=== PATIENT | male | born 1940 | race Caucasian/White ===

== ENCOUNTER 2018-12-28 10:38 | Observation (INO) | payer MEDICARE ==
[~2018-12-28] VITALS: Ht 170.2 cm; Wt 71.4 kg
[~2018-12-28 10:38] MED LIST: ALLO100T30 PO; ALPR0.254 PO; ASPI325T17 PO; ATEN25TA PO; ATOR-2 PO; ATOR10TA9 PO; BENA20TA54 PO; BENA20TA61 PO; CEFD300C37 PO; CLOP75TA52 PO; DOXY100T PO; FLUT1DIS IH; GLIP5TAB10 PO; GUAI600T31 PO; HYDR1TAB16 PO; IPRA3AMP30 NPPB; ISOS30TA21 PO; ISOSORBIDE PO; MAGN400T26 PO; METF500T17 PO; METO-93 PO; METOPROLOL; NITR0.4T41 SL; OMEP-110 PO; PRED10TA14 PO; RIVA20TA PO; TICA90TA PO; TIOT18CA INH; TRAM50TA2 PO; VIT D PO
--- NOTE | 2018-12-28 10:49 | NUR ---
EKG performed in triage
[2018-12-28] MEDS ORDERED: NITROGLYCERIN SINGLE TAB 0.4 MG SL PRN (11:00)
[2018-12-28] MEDS ORDERED: ASPIRIN 81 MG TABLET CHEW PO ONE (11:00)
[2018-12-28] MEDS ORDERED: SODIUM CHLORIDE FLUSH 10ML SYR IVF ONE (11:00)
--- NOTE | 2018-12-28 11:14 | NUR ---
Assumed care of patient. C/O substernal CP radiating across chest. Hx DE, afib, DM, HTN, high choelsterol, and 6 vessel CABG. Placed on NIBP, pulse ox and playground monitor. at bedside. Will continue to monitor.
[2018-12-28] MEDS ORDERED: ASPIRIN 81 MG TABLET CHEW ONE (11:16)
[2018-12-28] MEDS ORDERED: NITROGLYCERIN SINGLE TAB 0.4 MG SL ONE (11:16)
--- NOTE | 2018-12-28 11:23 | NUR ---
CP remains 3/10 after first nitro.
--- NOTE | 2018-12-28 11:25 | NUR ---
BP went from 147/61 to 107/68. Nitro held.
[2018-12-28 11:26] LABS: BASOPHILS # (AUTO) 0.03 x10^3/uL (0-0.1); BASOPHILS % (AUTO) 0 % (0-1); EOSINOPHILS # (AUTO) 0.05 x10^3/uL (0-0.4); EOSINOPHILS % (AUTO) 1 % (1-7); LYMPHOCYTES % (AUTO) 18 % (22-44); MD NO; MEAN CORPUSCULAR HEMOGLOBIN 29.5 pg (27.5-34.5); MEAN CORPUSCULAR HGB CONC 32.6 g/dL (33.2-36.2); MEAN CORPUSCULAR VOLUME 90.5 fL (81-97); MEAN PLATELET VOLUME 9.9 fL (7.4-10.4); MONOCYTES # (AUTO) 0.59 x10^3/uL (0.2-0.8); MONOCYTES % (AUTO) 6 % (2-9); NEUTROPHILS # (AUTO) 6.97 x10^3/uL (1.8-6.8); NEUTROPHILS % (AUTO) 75 % (42-75); PLATELET COUNT 178 x10^3/uL (130-400); RED BLOOD COUNT 4.57 x10^6/uL (4.38-5.82); RED CELL DISTRIBUTION WIDTH 15.3 % (9.4-14.8)
[2018-12-28 11:35] LABS: INTERNATIONAL NORMALIZED RATIO 1.19 (0.93-1.1); PROTHROMBIN TIME 12.4 Seconds (9.6-11.5)
[2018-12-28 11:36] LABS: ALBUMIN 3.4 g/dL (3.4-5.0); ANION GAP 6 mmol/L (5-15); CHLORIDE 112 mmol/L (98-107)
[2018-12-28 11:39] LABS: TROPONIN I < 0.015 ng/mL (0.000-0.045)
[2018-12-28] MEDS ORDERED: METO25TA91 PO (12:30)
[2018-12-28] MEDS ORDERED: VITA1CAP PO (12:30)
[2018-12-28] MEDS ORDERED: HYDR-3240 PO (12:30)
--- NOTE | 2018-12-28 12:45 | NUR ---
Resting in gurney. at bedside. Provided with pillow.
[2018-12-28] MEDS ORDERED: SODIUM CHLORIDE FLUSH 10ML SYR IVF PRN (13:00)
--- NOTE | 2018-12-28 13:20 | NUR ---
Report to [facility].
[2018-12-28 14:25] VITALS: BP 147/69
[2018-12-28] MEDS ORDERED: HYDROcodone/APAP 5/325 TABLET PO PRN (14:30)
[2018-12-28] MEDS ORDERED: ONDANSETRON 2MG/ML, 2ML IVPush PRN (14:30)
[2018-12-28] MEDS ORDERED: NITROGLYCERIN SINGLE TAB 0.4 MG SL SCH (14:30)
[2018-12-28] MEDS ORDERED: morphine SULFATE 10 MG/ML, 1ML IVPush PRN (14:30)
[2018-12-28] MEDS ORDERED: POLYETHYLENE GLYCOL 17 GM PACKET PO PRN (14:30)
[2018-12-28] MEDS ORDERED: hydrALAzine 20 MG/ML, 1ML IVPush PRN (14:30)
[2018-12-28 14:51] LABS: TROPONIN I < 0.015 ng/mL (0.000-0.045)
[2018-12-28] MEDS ORDERED: [UNRECOGNIZED DRUG - REMARK] MC SCH (15:30)
[2018-12-28] MEDS: INSULIN LISPRO 100 UNITS/ML, PEN SQ-INSULIN SCH ×2 (16:00→21:00)
[2018-12-28 16:59] LABS: HEMOGLOBIN A1C 6.8 % (4.2-6.3)
[2018-12-28 20:08] VITALS: BP 158/72
[2018-12-28 20:28] LABS: TROPONIN I < 0.015 ng/mL (0.000-0.045)
[2018-12-28] MEDS: METOPROLOL SUCCINATE 25 MG TAB.ER.24H PO SCH (20:59)
[2018-12-28] MEDS ORDERED: ATORVASTATIN 80 MG TABLET PO SCH (21:00)
[2018-12-28] MEDS ORDERED: DIPHENHYDRAMINE 50 MG CAPSULE PO PRN (21:30)
[2018-12-29 01:32] VITALS: BP 169/75
[2018-12-29 02:05] VITALS: BP 177/78
[2018-12-29 03:16] VITALS: BP 162/74
[2018-12-29 05:42] LABS: BASOPHILS # (AUTO) 0.05 x10^3/uL (0-0.1); BASOPHILS % (AUTO) 1 % (0-1); EOSINOPHILS # (AUTO) 0.08 x10^3/uL (0-0.4); EOSINOPHILS % (AUTO) 1 % (1-7); LYMPHOCYTES # (AUTO) 1.91 x10^3/uL (1-3.4); LYMPHOCYTES % (AUTO) 21 % (22-44); MD NO; MEAN CORPUSCULAR HEMOGLOBIN 29.7 pg (27.5-34.5); MEAN CORPUSCULAR HGB CONC 32.9 g/dL (33.2-36.2); MEAN CORPUSCULAR VOLUME 90.1 fL (81-97); MEAN PLATELET VOLUME 10.2 fL (7.4-10.4); MONOCYTES # (AUTO) 0.68 x10^3/uL (0.2-0.8); MONOCYTES % (AUTO) 7 % (2-9); NEUTROPHILS # (AUTO) 6.51 x10^3/uL (1.8-6.8); NEUTROPHILS % (AUTO) 71 % (42-75); PLATELET COUNT 159 x10^3/uL (130-400); RED BLOOD COUNT 4.61 x10^6/uL (4.38-5.82); RED CELL DISTRIBUTION WIDTH 15.1 % (9.4-14.8)
[2018-12-29] MEDS ORDERED: ASPIRIN 81 MG TABLET EC PO SCH (06:00)
[2018-12-29] MEDS ORDERED: RIVAROXABAN 20 MG TABLET PO SCH (06:00)
[2018-12-29 06:01] LABS: ALBUMIN 3.2 g/dL (3.4-5.0); ANION GAP 8 mmol/L (5-15); CALCIUM 8.9 mg/dL (8.5-10.1); CHLORIDE 108 mmol/L (98-107)
[2018-12-29 06:14] LABS: ALANINE AMINOTRANSFERASE 19 U/L (12-78); ALKALINE PHOSPHATASE 90 U/L (45-117); BILIRUBIN,TOTAL 1.9 mg/dL (0.2-1.0); CHOL/HDL RATIO 2.7; CHOLESTEROL, TOTAL 123 mg/dL (140-239); CREATININE 1.18 mg/dL (0.7-1.3); HDL CHOL % 37 % (26-37); HDL CHOLESTEROL (DIRECT) 45 mg/dL (40-60); LDL CHOLESTEROL,CALCULATED 56 mg/dL (54-169); LDL/HDL RATIO 1.2 (0.5-3.0); TOTAL PROTEIN 6.1 g/dL (6.4-8.2); TRIGLYCERIDES 110 mg/dL (50-200); VLDL CHOLESTEROL 22 mg/dL (0-25)
[2018-12-29] MEDS: INSULIN LISPRO 100 UNITS/ML, PEN SQ-INSULIN SCH (07:00)
[2018-12-29 07:15] VITALS: BP 158/72
[2018-12-29] MEDS ORDERED: BENAZEPRIL 20 MG TABLET PO SCH (09:00)
[2018-12-29] MEDS ORDERED: CHOLECALCIFEROL 1,000 UNIT TABLET PO SCH (09:00)
[2018-12-29] MEDS ORDERED: OMEPRAZOLE 20 MG CAPSULE.DR PO SCH (09:00)
[2018-12-29] MEDS ORDERED: MULTIVITS,STRESS FORMULA 1 TABLET PO SCH (09:00)
[2018-12-29] MEDS ORDERED: ALLOPURINOL 100 MG TABLET PO SCH (09:00)
[2018-12-29] MEDS ORDERED: ISOSORBIDE DINITRATE 30 MG TABLET PO SCH (09:00)
[2018-12-29] MEDS: METOPROLOL SUCCINATE 25 MG TAB.ER.24H PO SCH (09:07)
== END 2018-12-29 11:40 | disposition home or self-care (01) ==
LOC: ED 12:10 → INTOOBSV 12:56 → EDIP 12:56 → 5SO 13:34 → DCLOUNGE 12-29 11:40
PROVIDERS: ADMIT Hospitalist; ATTEND Hospitalist
DX: R07.89 Other chest pain (principal); I25.110 Atherosclerotic heart disease of native coronary artery with unstable angina pectoris; I10 Essential (primary) hypertension; I48.91 Unspecified atrial fibrillation; E78.5 Hyperlipidemia, unspecified; E11.9 Type 2 diabetes mellitus without complications; Z87.891 Personal history of nicotine dependence; Z79.84 Long term (current) use of oral hypoglycemic drugs; Z79.899 Other long term (current) drug therapy; Z86.718 Personal history of other venous thrombosis and embolism; Z79.01 Long term (current) use of anticoagulants; Z79.82 Long term (current) use of aspirin; Z95.1 Presence of aortocoronary bypass graft; Z95.5 Presence of coronary angioplasty implant and graft
CPT/HCPCS: 36415; 71045; 80048; 80053; 80061; 82040; 82962; 83036; 83880; 84484; 85025; 85610; 85730; 93005; 96374; 99284; G0378; J0360

== ENCOUNTER 2020-01-03 10:55 | Emergency (ER) | payer MEDICARE ==
[~2020-01-03] VITALS: Ht 170.2 cm; Wt 75.1 kg
[~2020-01-03 10:55] MED LIST changes: +HYDR-3240 PO; +METO25TA91 PO; +VITA1CAP PO
[2020-01-03] MEDS ORDERED: MORPHINE SULFATE 4 MG/ML, 1ML ONE (11:46)
[2020-01-03] MEDS ORDERED: ONDANSETRON 2MG/ML, 2ML ONE (11:46)
[2020-01-03] MEDS ORDERED: MORPHINE SULFATE 4 MG/ML, 1ML IVPush PRN (12:00)
[2020-01-03] MEDS ORDERED: ONDANSETRON 2MG/ML, 2ML IVPush ONE (12:00)
[2020-01-03] MEDS ORDERED: SODIUM CHLORIDE FLUSH 10ML SYR IVF ONE (12:00)
--- NOTE | 2020-01-03 12:00 | NUR ---
PIV STARTED, LABS DRAWN. PT MEDICATED PER EMAR. URINE COLLECTED AND SENT TO LAB.
[2020-01-03 12:11] LABS: BASOPHILS # (AUTO) 0.02 x10^3/uL (0-0.1); BASOPHILS % (AUTO) 0 % (0-1); EOSINOPHILS # (AUTO) 0.06 x10^3/uL (0-0.4); EOSINOPHILS % (AUTO) 1 % (1-7); LYMPHOCYTES # (AUTO) 1.71 x10^3/uL (1-3.4); LYMPHOCYTES % (AUTO) 21 % (22-44); MD NO; MEAN CORPUSCULAR HEMOGLOBIN 27.3 pg (27.5-34.5); MEAN CORPUSCULAR HGB CONC 32.2 g/dL (33.2-36.2); MEAN CORPUSCULAR VOLUME 84.7 fL (81-97); MEAN PLATELET VOLUME 9.6 fL (7.4-10.4); MONOCYTES # (AUTO) 0.57 x10^3/uL (0.2-0.8); MONOCYTES % (AUTO) 7 % (2-9); NEUTROPHILS # (AUTO) 5.92 x10^3/uL (1.8-6.8); NEUTROPHILS % (AUTO) 71 % (42-75); PLATELET COUNT 201 x10^3/uL (130-400); RED BLOOD COUNT 4.28 x10^6/uL (4.38-5.82); RED CELL DISTRIBUTION WIDTH 16.4 % (9.4-14.8)
[2020-01-03 12:19] LABS: ALBUMIN 3.2 g/dL (3.4-5.0); ANION GAP 5 mmol/L (5-15); CALCIUM 8.5 mg/dL (8.5-10.1); CHLORIDE 112 mmol/L (98-107); CREATININE 1.35 mg/dL (0.7-1.3)
--- NOTE | 2020-01-03 12:22 | NUR ---
PT TO US.
[2020-01-03 12:23] LABS: MICROSCOPIC NOT IND
[2020-01-03 12:49] VITALS: BP 107/53
--- NOTE | 2020-01-03 12:49 | NUR ---
PT REPORTS RELIEF OF PAIN AFTER MEDS. LEA YOUSSEF.
[2020-01-03] MEDS ORDERED: CIPROFLOXACIN 500 MG TABLET PO ONE (13:00)
[2020-01-03] MEDS ORDERED: CIPROFLOXACIN 500 MG TABLET ONE (13:00)
--- NOTE | 2020-01-03 13:31 | NUR ---
Patient given discharge instructions and they have confirmed that they understand the instructions. Patient ambulatory with steady gait.
== END 2020-01-03 13:42 | disposition home or self-care (01) ==
LOC: ED 12:06
DX: N45.1 Epididymitis (principal)
CPT/HCPCS: 36415; 76870; 80048; 81003; 82040; 85025; 96374; 96375; 99284; J2270; J2405

== ENCOUNTER 2021-01-04 09:52 | Day surgery (SDC) | payer MEDICARE ==
[~2021-01-04] VITALS: Ht 170.2 cm; Wt 72.7 kg
[~2021-01-04 09:52] MED LIST changes: +HYDR-2214 PO; -HYDR-3240 PO
[2021-01-04] MEDS ORDERED: CHOL10003 PO (10:19)
[2021-01-04] MEDS ORDERED: CYAN25009 PO (10:19)
[2021-01-04] MEDS ORDERED: ISOS30TA21 PO (10:19)
[2021-01-04] MEDS ORDERED: GLIP5TAB10 PO (10:19)
[2021-01-04 10:20] VITALS: BP 119/65
[2021-01-04] MEDS ORDERED: SODIUM CHLORIDE 0.9% 1,000 ML IV SCH ×2 (10:30→13:00)
[2021-01-04 10:39] LABS: BASOPHILS % (AUTO) 1 % (0-1); EOSINOPHILS % (AUTO) 1 % (1-7); LYMPHOCYTES % (AUTO) 24 % (22-44); MD NO; MEAN CORPUSCULAR HEMOGLOBIN 22.6 pg (27.5-34.5); MEAN CORPUSCULAR HGB CONC 31.9 g/dL (33.2-36.2); MEAN PLATELET VOLUME 9.7 fL (7.4-10.4); MONOCYTES % (AUTO) 8 % (2-9); NEUTROPHILS % (AUTO) 66 % (42-75); PLATELET COUNT 203 x10^3/uL (130-400); RED BLOOD COUNT 4.49 x10^6/uL (4.38-5.82)
[2021-01-04 10:48] LABS: ANION GAP 5 mmol/L (5-15); CALCIUM 8.8 mg/dL (8.5-10.1); CHLORIDE 111 mmol/L (98-107); CREATININE 1.38 mg/dL (0.7-1.3)
[2021-01-04] MEDS ORDERED: TICAGRELOR 90 MG TABLET ONE (11:40)
[2021-01-04] MEDS ORDERED: MIDAZOLAM 1 MG/ML, 5ML ONE (11:40)
[2021-01-04] MEDS ORDERED: VERAPAMIL 2.5 MG/ML, 2ML ONE (11:40)
[2021-01-04] MEDS ORDERED: FENTANYL PF 100 MCG/2ML ONE ×2 (11:40→13:41)
[2021-01-04] MEDS ORDERED: LIDOCAINE-MPF 1%, 5ML ONE (11:41)
[2021-01-04] MEDS ORDERED: HEPARIN 1,000 UNITS/ML, 10ML ONE (11:41)
[2021-01-04] MEDS ORDERED: BIVALIRUDIN 250 MG ONE (11:41)
[2021-01-04] MEDS ORDERED: LIDOCAINE 1%, 20ML ONE (11:48)
[2021-01-04] MEDS ORDERED: FENTANYL PF 100 MCG/2ML IVPush PRN (13:00)
== END 2021-01-04 15:44 | disposition home or self-care (01) ==
LOC: CACL 09:52
PROVIDERS: ATTEND Internal Medicine Cardiovascular Disease
DX: I25.110 Atherosclerotic heart disease of native coronary artery with unstable angina pectoris (principal); I25.82 Chronic total occlusion of coronary artery; T82.855A Stenosis of coronary artery stent, initial encounter; I48.91 Unspecified atrial fibrillation; I10 Essential (primary) hypertension; E11.9 Type 2 diabetes mellitus without complications; E78.2 Mixed hyperlipidemia; J44.9 Chronic obstructive pulmonary disease, unspecified; Z79.01 Long term (current) use of anticoagulants; Z79.84 Long term (current) use of oral hypoglycemic drugs; Z79.899 Other long term (current) drug therapy; Y83.8 Other surgical procedures as the cause of abnormal reaction of the patient, or of later complication, without mention of misadventure at the time of the procedure
CPT/HCPCS: 36415; 80048; 85025; 93459; 99156; C1760; C1769; C1894; J1644; J2250; J3010; Q9967; J0583